=== PATIENT | male | born 1945 | race Caucasian/White ===

== ENCOUNTER 2020-09-14 08:26 | Outpatient (CLI) | payer MEDICARE, OTHER, SELFPAY ==
--- NOTE | 2020-09-14 08:38 | XR_ITS ---
WS: [id number] Exam: XR lumbar spine 2-3V* [id number] Date/Time of Exam: 09/14/2020 8:38 AM Reason For Exam: M54.16 - Radiculopathy, lumbar region No acute fracture or dislocation. Disc spaces are preserved. Posterior elements are intact. Degenerat fay change of the SI joints. Aortoiliac atherosclerosis. XR/XR lumbar spine 2-3V* [id number] IMPRESSION: 1. No fracture or malalignment noted. Minimal degenerative change.
--- NOTE | 2020-09-14 08:38 | XR_ITS ---
WS: [id number] Exam: XR knee RT 1-2V [id number] Date/Time of Exam: 09/14/2020 8:38 AM Reason For Exam: M25.561 - Pain in right knee No fracture or dislocation. The joint compartments are well maintained. No joint effusion. XR/XR knee RT 1-2V [id number] IMPRESSION: 1. Negative right knee.
== END 2020-09-14 08:27 | disposition home or self-care (01) ==
PROVIDERS: Visit Provider Family Medicine
DX: M25.561 Pain in right knee (principal); M54.16 Radiculopathy, lumbar region
CPT/HCPCS: 72100; 73560

== ENCOUNTER → 2021-01-14 15:10 | Outpatient (BNVA) | payer MEDICARE, OTHER, SELFPAY | PROVIDERS: PCP Family Medicine; Visit Provider Family Medicine | DX: I63.9 Cerebral infarction, unspecified (principal); E78.5 Hyperlipidemia, unspecified; I10 Essential (primary) hypertension; J44.9 Chronic obstructive pulmonary disease, unspecified; Z79.899 Other long term (current) drug therapy | CPT/HCPCS: 80053; 80061; 84443 ==